=== PATIENT | female | born 1950 | race Caucasian/White ===

== ENCOUNTER 2020-12-12 08:00 | Outpatient (CLI) | payer OTHER ==
[~2020-12-12 08:00] MED LIST: GILTUSS TR TAB1 EACH PO; ZITHROMAX TRI-500 MG PO
== END 2020-12-12 08:30 | disposition home or self-care (01) ==
LOC: PPH VACUNA 08:00
DX: Z23 Encounter for immunization (principal)

== ENCOUNTER 2021-07-30 08:00 | Outpatient (CLI) | payer OTHER | END 2021-07-30 08:30 | disposition home or self-care (01) | LOC: PPH VACUNA 08:00 | PROVIDERS: ATTEND Emergency Medicine Pediatric Emergency Medicine | DX: Z23 Encounter for immunization (principal) ==

== ENCOUNTER 2021-09-12 06:27 | Outpatient (CLI) | payer OTHER | END 2021-09-14 14:40 | disposition home or self-care (01) | LOC: SONOGRAMA 06:27 → MAMO-SONO 06:27 → SONOGRAMA 09-14 14:40 | PROVIDERS: ATTEND Obstetrics & Gynecology | DX: E04.1 Nontoxic single thyroid nodule (principal) ==

== ENCOUNTER 2022-01-28 13:13 | Outpatient (CLI) | payer OTHER | END 2022-01-28 13:23 | disposition home or self-care (01) | LOC: PPH VACUNA 13:13 | PROVIDERS: ATTEND Emergency Medicine Pediatric Emergency Medicine | DX: Z23 Encounter for immunization (principal) ==